=== PATIENT | female | born 1965 | race American Indian/Alaskan Native ===

== ENCOUNTER 2019-03-12 11:43 | Emergency (ER) | payer MEDICAID ==
[2019-03-12 12:02] VITALS: BP 117/78
--- NOTE | 2019-03-12 12:05 | Emergency Department Report ---
Chief Complaint: Extremity Injury, Lower Stated Complaint: RIGHT ANKLE PAIN Time Seen by Provider: 03/12/19 12:01 - HPI History of Present Illness: 53 y o female presents cc of right ankle pain x 2 years s/p bone fusion states pain aggrevating with walking, she was seen at [facility] some time ago and states has appt with ortho in may but unable to wait that long due to pain. She denies recent injury, trauma or fall - ROS Review of Systems: As noted in HPI - Exam Vital Signs: Vital Signs 03/12/19 11:58 Temperature 98.2 F Pulse Rate 83 Respiratory 16 Rate Blood Pressure 117/78 O2 Sat by Pulse 96 Oximetry Physical Exam: GEN: AAO x 3, ambulatory with no problem EXT: No ankle swelling, no deformity noted, pedal pulse present MSE screening note: Focused history and physical exam performed. Due to findings the following was ordered: ED Disposition for MSE Clinical Impression: Right ankle pain Disposition: Z-07 MED SCREENING EXAM-LEFT Is pt being admited?: No Does the pt Need Aspirin: No Condition: Stable Instructions: Arthralgia (ED) Additional Instructions: follow up with the orthopedic dr Referrals: JOSE MARTIN WELSH MD [Staff Physician] - 3-5 Days [facility] [Provider Group] - 3-5 Days Forms: Work/School Release Form(ED) Time of Disposition: 12:03
== END 2019-03-12 12:03 | disposition left against medical advice (07) ==
LOC: ED 11:43
DX: M25.571 Pain in right ankle and joints of right foot (principal)
CPT/HCPCS: 99281